=== PATIENT | male | born 1985 | race Two or more races ===

== ENCOUNTER 2021-04-20 21:06 | Emergency (ER) | payer OTHER, SELFPAY ==
[~2021-04-20] VITALS: Ht 172.7 cm; Wt 104.3 kg
[2021-04-20 21:10] VITALS: BP_SYST 171
[2021-04-20 22:26] LABS: BASOPHILS # (AUTO) 0.1 K/uL (0.0-0.2); BASOPHILS % (AUTO) 0.6 % (0.0-2.0); EOSINOPHILS # (AUTO) 0.1 K/uL (0.0-0.4); EOSINOPHILS % (AUTO) 0.9 % (0.0-4.0); HEMATOCRIT 44.3 % (36-54); HEMOGLOBIN 15.4 g/dL (14.0-18.0); LYMPHOCYTES # (AUTO) 1.9 K/uL (1.0-5.5); LYMPHOCYTES % (AUTO) 17.3 % (20.5-51.5); MEAN CORPUSCULAR HEMOGLOBIN 28 pg (27-31); MEAN CORPUSCULAR HGB CONC 35 % (32-36); MEAN CORPUSCULAR VOLUME 80 fL (79.0-98.0); MONOCYTES # (AUTO) 0.6 K/uL (0.0-1.0); MONOCYTES % (AUTO) 5.3 % (1.7-9.3); NEUTROPHILS # (AUTO) 8.2 K/uL (1.8-7.7); NEUTROPHILS % (AUTO) 75.9 % (40.0-70.0); PLATELET COUNT (AUTO) 242 K/uL (130-430); RED BLOOD CELL COUNT(AUTO) 5.51 MIL/uL (4.2-6.2); RED CELL DISTRIBUTION WIDTH 12.9 % (9.0-15.0); WHITE BLOOD COUNT (AUTO) 10.8 K/uL (4.8-10.8)
[2021-04-20 22:31] LABS: ANION GAP 6 (5-15); CALCIUM 9.3 mg/dL (8.4-11.0); CHLORIDE 97 mmol/L (98-107); CREATININE 1.11 mg/dL (0.55-1.30); GLUCOSE 204 mg/dL (70-99); POTASSIUM 3.7 mmol/L (3.5-5.1); SODIUM SERUM 131 mmol/L (136-145); UREA NITROGEN, BLOOD 15 mg/dL (8-21)
[2021-04-20 22:32] LABS: GFR AFRICAN AMERICAN 97 mL/min (>90)
[2021-04-20 22:39] LABS: ALANINE AMINOTRANSFERASE 40 U/L (12-78); ALBUMIN 4.2 g/dL (3.4-4.8); ASPARTATE AMINOTRANSFERASE 11 U/L (10-37); TOTAL BILIRUBIN 0.5 mg/dL (0.0-1.0)
[2021-04-21] MEDS ORDERED: PANTOPRAZOLE SODIUM 40 MG/VIAL (PROTONIX) IVP ONE (01:30)
[2021-04-21] MEDS ORDERED: MAG HYDROX/AL HYDROX/SIMETH 30 ML, DICYCLOMINE HCL 20 MG, LIDOCAINE VISCOUS 2% 15ML (PO... PO ONE ×3 (01:30)
[2021-04-21] MEDS ORDERED: FINA5TAB3 PO (03:26)
[2021-04-21] MEDS ORDERED: METF-518 PO (03:26)
[2021-04-21] MEDS ORDERED: ROSU10TA2 PO (03:26)
[2021-04-21] MEDS ORDERED: GLIP5TAB26 PO (03:26)
[2021-04-21] MEDS ORDERED: PANTOPRAZOLE SODIUM 40 MG TAB PO ONE (04:30)
[2021-04-21] MEDS ORDERED: MAG-AL HYDROX/SIMETH 30 ML UDC ONE (04:31)
[2021-04-21] MEDS ORDERED: LIDOCAINE VISCOUS 2%, 15 ML UDC ONE (04:31)
[2021-04-21] MEDS ORDERED: DICYCLOMINE HCL 10 MG/5 ML SOLUTION ONE (04:32)
[2021-04-21] MEDS ORDERED: PRO40 PO (05:53)
[2021-04-21 06:09] VITALS: BP_SYST 137
== END 2021-04-21 06:10 | disposition home or self-care (01) ==
LOC: SED 21:06
DX: K29.70 Gastritis, unspecified, without bleeding (principal); R07.89 Other chest pain; I10 Essential (primary) hypertension; E11.9 Type 2 diabetes mellitus without complications; Z20.822 Contact with and (suspected) exposure to COVID-19
CPT/HCPCS: 36415; 71045; 80053; 82550; 84484; 85025; 85379; 86710; 87426; 93005; 99285; J2001